=== PATIENT | female | born 1990 | race Caucasian/White ===

== ENCOUNTER 2018-08-27 15:45 | Day surgery (SDC) | payer BC ==
[2018-08-27 16:38] VITALS: BP 98/57; TEMP 99; BMI 29.0
[2018-08-27] MEDS ORDERED: Lactated Ringer's 1,000 ML IV SCH ×3 (17:00→21:42)
[2018-08-27] MEDS: Lactated Ringer's 1,000 ML IV SCH ×2 (18:54→20:24)
[2018-08-27] MEDS ORDERED: Acetaminophen 500 MG TAB PO SCH (19:45)
[2018-08-27 21:39] LABS: #Basophils 0.1 thou/uL (0.0-0.2); #Lymphocytes 0.5 thou/uL (1.20-3.40); #Monocytes 0.5 thou/uL (0.11-0.59); #Neutrophils 6.1 thou/uL (1.40-6.50); %Basophils 1.2 % (0.0-1.0); %Eosinophils 0.1 % (0.0-10.0); %Lymphocytes 6.9 % (21.0-51.0); %Monocytes 6.4 % (0.0-10.0); %Neutrophils 85.4 % (42.0-75.0); Hemoglobin 8.2 g/dL (12.0-16.0); Mean Corpuscular HGB CONC 33.7 g/dL (32.0-36.0); Mean Corpuscular Hemoglobin 28.7 pg (27.0-31.0); Mean Corpuscular Volume 85.3 fL (78.0-98.0); Mean Platelet Volume 6.5 fL (7.4-10.4); Platelet Count 238 thou/uL (130-400); RBC Distribution Width 13.4 % (11.5-14.5); Red Blood Cell (RBC) Count 2.87 mill/uL (4.20-5.40); White Blood Cell (WBC) Count 7.1 thou/uL (4.8-10.8)
[2018-08-27 22:11] LABS: Bilirubin Negative (Negative); Blood, Urine Negative (Negative); Clarity CLEAR (Clear); Glucose, Urine (Dipstick) 100 mg/dL (Negative); Leukocyte Negative (Negative); Nitrite Negative (Negative); Protein, Urine (Dipstick) Negative (Neg-Trace); Specific Gravity, Urine 1.012 (1.002-1.036); Urobilinogen 0.2 mg/dL (0.2-1.0)
[2018-08-27 22:13] LABS: Bacteria/HPF None Seen HPF (None Seen); Hyaline Casts/LPF 0-3 HYALINE CAST LPF (0-3 Hyaline); RBC/HPF 0-3 HPF (0-3); Squamous Epithelial 0-3 HPF (0-3); WBC/HPF 0-3 HPF (0-3)
[2018-08-27 22:15] LABS: Urine Culture Reflex No No
--- NOTE | 2018-08-28 08:06 | PRG ---
DATE OF SERVICE: 08/27/2018 PRIMARY YARD DEMURRAGE CLERK: Dr. Morillo at [facility]. CHIEF COMPLAINT: Diarrhea and nonreactive NST. HISTORY OF PRESENT ILLNESS: The patient is a 27-year-old G2, P1 female with an intrauterine at 36-6/7th weeks, who presents to Labor and Delivery upon referral of her primary clinic. The patient's routine visit today was noted to have a fetus tachycardia up into the 190s and by Doppler and on NST was nonreactive. The patient has been experiencing diarrhea since the night before and came here for further evaluation. Upon arrival, the patient reported that she has had 5 or 6 episodes of diarrhea since last night for approximately 18-24 hours and she also reports that she has been having shakes and chills at home and felt cold and feverish at times, though she has not checked her temperature. The patient denies any sick contacts. She reports that she was having body aches, muscle aches, and headache. She denies any fall. She denies an objective fever. She denies chest pain or shortness of breath. She denies constipation. She denies a rash. She denies hip problems, knee problems and muscle weakness. She denies vaginal bleeding or leakage of fluid. She denies uterine contractions. She denies urinary urgency. PAST MEDICAL HISTORY: Negative. PAST SURGICAL HISTORY: Negative. ALLERGIES: NO KNOWN DRUG ALLERGIES. MEDICATIONS: vitamins. SOCIAL HISTORY: Denies drugs, alcohol or tobacco use. OBSTETRIC LABS: Unavailable at time of dictation. REVIEW OF SYSTEMS: Per HPI. PHYSICAL EXAMINATION: VITAL SIGNS: Blood pressure 98/57, heart rate of 130, temperature 99, respiratory rate 20. GENERAL: She appears to be in no acute distress. She is alert, oriented, cooperative, and pleasant to interact with. HEAD: Normocephalic and atraumatic. LUNGS: Clear to auscultation bilaterally. HEART: Tachycardic, but has a regular rhythm. ABDOMEN: Soft. She has no CVA tenderness. No vertebral tenderness. EXTREMITIES: Nontender, nonedematous. Fetus on initial evaluation had a baseline in the 150s, prolonged accelerations into the 170s, had positive 15 x 15 accelerations and no decelerations. The tocometer shows some irritability, but no consistent contraction pattern. Upon the patient initial evaluation, the patient was dehydrated due to excessive diarrhea and tachycardic. The patient was given IV and was aggressively IV hydrated with 2 L of lactated Ringer's. During the process of her stay, the patient spiked a fever to 102.1. Blood pressures continued to stay in the 80s systolic over 50s and 40s and remained tachycardic. During this time, fetus' baseline increased, but with resolution, the fever came back down to a normal previously described baseline. Given the patient's low blood pressures and febrile state, there was concern about the gravity of her illness, though the patient clinically did not look toxic. LABORATORY DATA: Collected including a lactic acid, CBC, urinalysis, and blood cultures and the patient was given 1 g of Tylenol. Labs upon return showed a normal white count of 7.1, hemoglobin of 8.2, hematocrit 24.5, platelets of 100,000 to 138,000. Her lactic acid returned at 1.1. Her urinalysis showed pH 6, specific gravity of 1.012, ketones of trace, negative blood, negative nitrites, negative leukocyte esterase, 0-3 white blood cells, no bacteria seen. The patient after 2 L was able to urinate initially very small now with dark urine and then secondarily traffic signal technician colored urine with more volume. The patient at the end of the 2 L and sometime, felt much better. Blood pressures remained stable. The patient was able to move around in her bed normal and had no orthostatic changes. Again, never appeared toxic or concerned of any severe illness. ASSESSMENT AND PLAN: The patient is a 27-year-old female with an intrauterine at 37 weeks, who was sent over for nonreactive nonstress test and diarrhea. Fetus had a category 1 tracing and reactive, though tachycardic when she became febrile. The patient likely has a viral syndrome affecting her gastrointestinal tract. She has no evidence of acute infection qualifying for sepsis or systemic inflammatory response syndrome, though her blood pressure is low. Given the patient's overall clinical picture, this is likely close to baseline for her. By the end of her stay, the patient's heart rate had come down to the 100s , maxing out at 107 and again was feeling much better and had no complaints. The patient desired to go home and felt safe and comfortable to do so. She was given instructions to stay hydrated using electrolyte containing fluids such as Pedialyte or Gatorade and to contact her primary provider or us should she persist with fever, worsening in her overall status or uncontrollable diarrhea. The patient has an appointment on Monday to follow up with one of her primary providers, Ms. Ozuna at [facility] in [place]. Her primary OB, Dr. Delores Morillo, was notified of Ms. Acharya's presence and treatment and disposition. Job ID: [id number] MTDD
== END 2018-08-28 00:05 | disposition home or self-care (01) ==
LOC: L&D/OP 15:45
PROVIDERS: ATTEND Obstetrics & Gynecology
DX: O99.613 Diseases of the digestive system complicating pregnancy, third trimester (principal); R19.7 Diarrhea, unspecified; O76 Abnormality in fetal heart rate and rhythm complicating labor and delivery; Z3A.37 37 weeks gestation of pregnancy
CPT/HCPCS: 36415; 81001; 83605; 85025; 87040; 87804; 96360; 96366; 99284

== ENCOUNTER 2018-08-29 16:56 | Day surgery (SDC) | payer BC ==
[2018-08-29 17:34] VITALS: BP 98/65; TEMP 98.3; BMI 28.5
--- NOTE | 2018-08-29 20:12 | ULT ---
BIOPHYSICAL PROFILE 08/29/18 HISTORY: 37 week with abnormal heart tracing. Real time imaging of the pelvis shows a single viable intrauterine in the cephalic presenta tion. The cervical canal length is 3 cm. heart rate is 132 beats per minute. Placenta is anteri or in location. Amniotic fluid index is 9.2. biophysical profile is as follows: tone - 2 breathing - 2 movement - 2 Amniotic fluid - 2 IMPRESSION: biophysical profile score is 8 of a possible 8. POS: ANDREA
--- NOTE | 2018-08-29 21:17 | PRG ---
DATE OF SERVICE: 08/29/2018 PRIMARY OB: Dr. Delores Morillo in [facility]. CHIEF COMPLAINT: Abnormal heart tracing in clinic. HISTORY OF PRESENT ILLNESS: The patient is a 27-year-old G2, P1, female with an intrauterine at 37 weeks and a day, who is followed at [facility] and was seen today by nurse practitioner, Ms. Ozuna. The patient on followup evaluation from a visit on Monday here at Labor and Delivery for tachycardia and GI viral syndrome. The patient, when evaluated, was noted to be having what appeared to be small variable decelerations and was sent here for evaluation. The patient today reports that she is feeling a lot better as compared to Monday. She denies anymore fevers. She reports she continues to have some diarrhea, but her stools are forming. The patient is tolerating diet. She also reports good movement. PAST MEDICAL HISTORY: Negative. PAST SURGICAL HISTORY: Negative. ALLERGIES: NO KNOWN DRUG ALLERGIES. MEDICATIONS: vitamins. SOCIAL HISTORY: Denies drug, alcohol, or tobacco use. OB LABS: Unavailable at the time of dictation. REVIEW OF SYSTEMS: Per HPI. PHYSICAL EXAMINATION: VITAL SIGNS: Blood pressure 98/65, heart rate of 80, respiratory rate of 18, saturating 98% on room air, temperature 98.4. GENERAL: She appears to be in no acute distress. She is alert, oriented, cooperative, and pleasant to interact with. HEENT: Head is normocephalic, atraumatic. LUNGS: Clear to auscultation bilaterally. HEART: Has a regular rate and rhythm. ABDOMEN: Soft, gravid, nontender. EXTREMITIES: Nontender, nonedematous. heart tracing demonstrates the fetus with a baseline initially in the 130s with moderate long-term variability. Positive accelerations and appeared to be isolated decelerations. They are difficult to characterize between short periods of marked long-term variability or very mild variable deceleration lasting only seconds, and the patient has had a couple of isolated decelerations that seem to drop 20 to 30 points from baseline and recover back from the 140s down to the 100s to 120s, returning to baseline within a minute and immediately being reactive thereafter. Tocometer does not show any regular contractions and none were felt by the patient. A BPP was ordered and it was 8/8 with an MAIDA of about between 9 and 10 cm. ASSESSMENT AND PLAN: The patient is a 27-year-old, G2, P1 female with an intrauterine at 37 weeks and a day, who presented to Labor and Delivery after evaluation in clinic with a strip concerning to Laith. The patient was seen here in Labor and Delivery and was noted to have overall category 1 tracing with a couple of isolated decelerations that seem to be random in nature. These findings were followed by BPP that was reassuring with normal fluid. The patient was given reassurance. She has a followup appointment on Monday with her primary OB, Dr. Delores Morillo, who will be notified of Ms. Acharya's visit to the hospital. The patient has been given term labor precautions. Job ID: [id number]
== END 2018-08-29 19:50 | disposition home or self-care (01) ==
LOC: L&D/OP 16:56
PROVIDERS: ATTEND Obstetrics & Gynecology
DX: O76 Abnormality in fetal heart rate and rhythm complicating labor and delivery (principal); Z3A.37 37 weeks gestation of pregnancy
CPT/HCPCS: 59025; 76819; 99282

== ENCOUNTER 2018-09-18 05:40 | Inpatient (IN) | payer BC ==
[~2018-09-18 05:40] MED LIST: Bicitra 30 ML UDCUP PO SCH; CEFAZOLIN 2 GM in Premix Bag 1 BAG IVPB SCH; Lactated Ringer's 1,000 ML IV SCH; Ondansetron PF 4 MG/2 ML Vial IVP PRN; Promethazine HCl 25 MG/ML VIAL IM PRN
[2018-09-18 06:26] VITALS: BMI 29.8
[2018-09-18 06:41] LABS: Hemoglobin 9.1 g/dL (12.0-16.0); Mean Corpuscular HGB CONC 33.5 g/dL (32.0-36.0); Mean Corpuscular Hemoglobin 27.3 pg (27.0-31.0); Mean Corpuscular Volume 81.6 fL (78.0-98.0); Mean Platelet Volume 6.9 fL (7.4-10.4); Platelet Count 303 thou/uL (130-400); Red Blood Cell (RBC) Count 3.35 mill/uL (4.20-5.40); White Blood Cell (WBC) Count 5.4 thou/uL (4.8-10.8)
[2018-09-18] MEDS ORDERED: Fentanyl 100 MCG/2 ML VIAL ONE (06:56)
[2018-09-18] MEDS ORDERED: Morphine PF 1 MG/ML SYR ONE (06:56)
[2018-09-18] MEDS ORDERED: Oxytocin 10 UNITS/ML VIAL ONE (06:57)
[2018-09-18] MEDS ORDERED: Ondansetron PF 4 MG/2 ML Vial ONE ×2 (06:57→12:38)
[2018-09-18] MEDS ORDERED: ePHEDrine/0.9% NaCl/PF SYRINGE 50 mg/10 ml ONE (06:57)
[2018-09-18] MEDS ORDERED: Ketorolac Tromethamine 30 MG/ML VIAL ONE ×2 (06:57→12:38)
[2018-09-18 07:21] LABS: HBSAg Index 0.23 S/CO (0-0.99); Hep B Surf Ag Non-Reactive S/CO (NonReactive); Syphilis Antibody Nonreactive (Nonreactive); Syphilis Antibody Index 0.05 S/CO (<1.00 Non-Reactive)
[2018-09-18] MEDS ORDERED: Ondansetron HCl/PF 4 MG/2 ML Vial IVP PRN (07:35)
[2018-09-18] MEDS ORDERED: Meperidine HCl/PF 25 MG/ML VIAL SLOW IVP PRN (07:35)
[2018-09-18] MEDS ORDERED: Ketorolac Tromethamine 30 MG/ML VIAL IVP PRN (07:35)
[2018-09-18] MEDS ORDERED: HYDROmorphone 2 MG/ML VIAL SLOW IVP PRN (07:35)
[2018-09-18] MEDS ORDERED: Naloxone HCl 0.4 mg/ml Vial IV PRN ×3 (07:35→13:13)
[2018-09-18] MEDS ORDERED: Naloxone HCl 0.4 mg/ml Vial IVP PRN ×3 (07:35→13:13)
[2018-09-18] MEDS ORDERED: Promethazine HCl 25 MG/ML VIAL IM PRN ×2 (07:35→13:13)
[2018-09-18] MEDS ORDERED: Eucerin (Mineral Oil/Petrolatum,White) 30 gm Jar TOP PRN (07:35)
[2018-09-18] MEDS ORDERED: diphenhydrAMINE 50 MG/ML VIAL IVP PRN ×2 (07:35→13:13)
[2018-09-18] MEDS ORDERED: Ondansetron PF 4 MG/2 ML Vial IVP PRN ×3 (07:35→13:13)
[2018-09-18] MEDS ORDERED: Promethazine HCl 25 MG SUPP PR PRN ×2 (07:35→13:13)
[2018-09-18] MEDS ORDERED: L&D-Morphine 4 MG/ML VIAL SLOW IVP PRN (07:35)
[2018-09-18] MEDS ORDERED: Communication Order-Pharmacy FS SCH (07:45)
[2018-09-18] MEDS ORDERED: Ketorolac Tromethamine 30 MG/ML VIAL IVP SCH (07:45)
[2018-09-18] MEDS ORDERED: Bisacodyl 10 MG SUPP PR PRN (08:49)
[2018-09-18] MEDS ORDERED: Simethicone Chewable 80 MG TAB PO PRN (08:49)
[2018-09-18] MEDS ORDERED: Adacel (T-DAP) 0.5 ML SYRINGE IM ONE (08:49)
[2018-09-18] MEDS ORDERED: Lanolin Ointment 7 GM TUBE TOP PRN (08:49)
[2018-09-18] MEDS ORDERED: ePHEDrine 50 MG/ML VIAL ONE (12:38)
[2018-09-18] MEDS: Docusate Calcium (SURFAK) 240 MG CAP PO SCH (12:48)
[2018-09-18] MEDS: Prenatal Vitamin 1 TAB PO SCH (12:48)
[2018-09-18] MEDS ORDERED: NO PO,IM,IV OR SC NARCOTICS FOR 12HR EXCEPT BY ANESTHESIA PO SCH (13:13)
[2018-09-18] MEDS ORDERED: Hydrocerin (Eucerin) Cream 120 gm Jar TOP PRN (13:13)
[2018-09-18] MEDS: Ketorolac Tromethamine 30 MG/ML VIAL IVP PRN ×2 (14:32→20:21)
[2018-09-18] MEDS: Ferrous Sulfate 325 MG TAB PO SCH (16:49)
[2018-09-18] MEDS ORDERED: HYDROcodone/Acetaminophen 5/325 mg Tablet PO PRN ×2 (19:45)
[2018-09-19] MEDS: Docusate Calcium (SURFAK) 240 MG CAP PO SCH ×3 (00:04→21:35)
[2018-09-19] MEDS ORDERED: Sodium Chloride 0.9% 10 ML ONE (03:31)
[2018-09-19] MEDS: Ketorolac Tromethamine 30 MG/ML VIAL IVP PRN (03:34)
[2018-09-19] MEDS ORDERED: HYDROcodone/Acetaminophen 5/325 mg Tablet PO PRN (05:44)
[2018-09-19] MEDS: HYDROcodone/Acetaminophen 5/325 mg Tablet PO PRN ×3 (06:09→19:13)
[2018-09-19] MEDS: Prenatal Vitamin 1 TAB PO SCH (08:21)
[2018-09-19] MEDS: Ferrous Sulfate 325 MG TAB PO SCH ×2 (08:22→17:10)
[2018-09-19] MEDS: Ibuprofen 800 MG TAB PO SCH ×2 (13:12→21:35)
[2018-09-20 00:02] VITALS: TEMP 97.9
[2018-09-20] MEDS: HYDROcodone/Acetaminophen 5/325 mg Tablet PO PRN (03:47)
[2018-09-20] MEDS: Ibuprofen 800 MG TAB PO SCH ×2 (05:56→14:11)
[2018-09-20 07:56] VITALS: BP 107/73
[2018-09-20] MEDS: Ferrous Sulfate 325 MG TAB PO SCH (09:13)
[2018-09-20] MEDS: Prenatal Vitamin 1 TAB PO SCH (09:13)
[2018-09-20] MEDS: Docusate Calcium (SURFAK) 240 MG CAP PO SCH (09:13)
[2018-09-20] MEDS ORDERED: Measles/Mumps/Rubella 10 MCG/0.5 ML VIAL SC ONE (14:00)
--- NOTE | 2018-09-21 14:10 | OP ---
DATE OF PROCEDURE: 09/18/2018 PREOPERATIVE DIAGNOSIS: A 27-year-old female with a history of previous low transverse section for cephalopelvic disproportion, scheduled repeat low transverse section. GBS negative. POSTOPERATIVE DIAGNOSES: 1. A 27-year-old female with a history of previous low transverse section for cephalopelvic disproportion, scheduled repeat low transverse section. GBS negative. 2. Live-born female, weighing 8 pounds 2 ounces, with Apgars of 9 and 9 at one and five minutes respectively. CLINICAL HISTORY: This patient is a 27-year-old female, who presented at 39 weeks for scheduled repeat low-transverse section. She had a history of a previous section at term for cephalopelvic disproportion. The risks, benefits, possible complications, as well as alternatives to the surgery were discussed, and the patient wished to proceed. DESCRIPTION OF PROCEDURE: The patient was taken to the operating room, where spinal anesthesia was obtained. She was laid in the supine position and prepped and draped in usual sterile fashion. After testing for adequate anesthesia, an incision was made in the lower abdomen in a Pfannenstiel manner over the previous incision. This previous incision was removed and then the incision was carried down to the fascia. The fascia was nicked in the midline and extended out bilaterally with the Borden scissors. The superior edge was grasped with [place] clamps x2 and elevated off the rectus muscles. The posterior border in similar fashion was elevated off the rectus and pyramidalis muscles. The rectus muscles were then in the midline and the incision into the peritoneum was performed. This incision was extended with a combination of blunt and sharp dissection. The bladder blade was then placed and the anterior surface of the uterus was noted to be free of adhesions. A bladder flap was created with Metzenbaum scissors and the Lithuanian forceps. The bladder blade was placed anterior to this to further reflect the bladder away from the incision. Then, the incision was made on the uterus to the layer of the amnion, and amniotomy was performed with clear fluid. The surgeon's hand was then placed inside the uterus and the vertex was delivered through the incision. The anterior shoulder followed by the posterior shoulder followed by the remainder of the 's body was delivered. The cord was doubly clamped and cut and the was handed off to the neonatology nurses in attendance for the delivery. Cord blood was obtained. The placenta was then delivered manually intact with a three-vessel cord and the uterus was exteriorized. Dry lap was used to cleanse all the debris in the uterus. The incision was then closed in a running locking fashion with excellent hemostasis and a second imbricating layer was closed over this. The bladder flap was then reapproximated and the gutters were cleansed of all debris. Seprafilm was placed over the anterior surface of the uterus and then the uterus was placed back inside the abdomen with excellent hemostasis. The peritoneal layer was closed in a running fashion and the rectus muscles were reapproximated with [id number] sutures. The prefascial gutters were cleansed of all debris and then the fascia was closed in a running fashion from the patient's left to the right. After this closure, copious irrigation of the subcutaneous tissues were performed and the subcutaneous tissue was then closed with several interrupted [id number] sutures. The skin was closed in a running fashion and then reinforced with Steri-Strips and Mastisol. The Tegaderm, Telfa, and 4 x 4 pressure dressing was placed over this, and the patient was transferred to the [facility] for transfer to the postsurgical recovery area. All needle, sponge, lap, and instrument counts were correct x2 prior to the patient leaving the operating room for recovery. Again, the infant was a live born female, weighing 8 pounds 2 ounces with Apgars of 9 and 9 at one and five minutes respectively. Estimated blood loss was 600 mL. Quantitative blood loss was 510 mL. There were no other issues surrounding this delivery. Job ID: [id number]
== END 2018-09-20 14:25 | disposition home or self-care (01) | DRG 788 ==
LOC: L&D 05:40 → 3SW 12:02
PROVIDERS: ADMIT Obstetrics & Gynecology; ATTEND Obstetrics & Gynecology
PROC: 10D00Z1 Extraction of Products of Conception, Low, Open Approach (ICD-10-PCS; principal; 2018-09-18)
DX: O34.211 Maternal care for low transverse scar from previous cesarean delivery (principal); Z3A.39 39 weeks gestation of pregnancy; O33.9 Maternal care for disproportion, unspecified; Z37.0 Single live birth; Z23 Encounter for immunization
CPT/HCPCS: 36415; 51702; 85027; 86780; 86850; 86900; 86901; 87340; 90707; 90715; J1885; J2274; J2310; J2405; J2590; J3010; J3490